=== PATIENT | female | born 1965 | race Two or more races ===

== ENCOUNTER 2025-05-20 09:00 | Day surgery (SDC) | payer OTHER ==
[2025-05-15 11:42] VITALS: BP 115/82
[2025-05-15 11:43] LABS: URINE APPEARANCE Clear; URINE BILIRRUBIN Negative (NEGATIVE); URINE BLOOD Moderate; URINE COLOR Yellow; URINE GLUCOSE Negative (NEGATIVE); URINE KETONE Trace (NEGATIVE); URINE LEUKOCYTE Small; URINE NITRATE Negative; URINE PROTEIN Trace (NEGATIVE); URINE UROBILINOGEN 0.2 E.U./dl
[2025-05-15 11:46] LABS: URINE BACTERIA 13.1 uL (0.0-1933); URINE EPITHELIAL CELLS 12.9 uL (0.0-38.8); URINE RBC 28.4 uL (0.0-20.8); URINE WBC 28.2 uL (0.0-23.2)
[2025-05-15 11:47] LABS: BASO % 0.4 % (0.1-1.2); EOS # 0.07 (0.04-0.54); EOS % 0.9 % (0.7-7.0); LYMPH # 2.18 (1.18-3.74); LYMPH % 27.9 % (19.3-53.1); MEAN PLATELET VOLUME 9.50 fl (9.4-12.4); MONO # 0.42 (0.24-0.82); MONO % 5.4 % (4.7-12.5); NEUT # 5.07 (1.56-6.13); NEUT % 65.0 % (34.0-71.1); RED CELL DISTRIBUTION WIDTH 13.2 % (11.6-14.4); URINE CAST 0.29 uL (0.0-1.40)
[2025-05-15 12:30] LABS: INR 0.99
[2025-05-15 12:39] LABS: ALT/SGPT 44.0 U/L (12-78); AST/SGOT 32.0 U/L (15-37); BILIRUBIN TOTAL 0.4 mg/dL (0.3-1.2); BUN CREA RATIO 18.0 (7.0-25.0); CREATININE SERUM 0.84 mg/dL (0.55-1.02); GFR 69.88; GLOBULINA 3.1 G/DL (2.4-3.5); GLUCOSE FASTING 91.0 mg/dL (65-100); OSMOLALITY SERUM 282.0 MOSM/KG (275-295)
[~2025-05-20] VITALS: Ht 154.9 cm; Wt 75.3 kg
[~2025-05-20 09:00] MED LIST: ROSUVASTATIN CA20 MG PO
[2025-05-20] MEDS ORDERED: CIPROFLOXACIN IN 5 % DEXTROSE 400 MG/200 ML PIGGYBAG IV ONE (09:36)
[2025-05-20] MEDS ORDERED: SUGAMMADEX SODIUM 200 MG/2 ML VIAL IV ONE (12:30)
== END 2025-05-20 15:40 | disposition home or self-care (01) ==
LOC: CIR.AMB 09:00
PROVIDERS: ATTEND Surgery
DX: K81.1 Chronic cholecystitis (principal)